=== PATIENT | male | born 1965 | race African-American/Black ===

== ENCOUNTER 2022-01-22 08:10 | Outpatient (CLI) | payer OTHER, SELFPAY ==
--- NOTE | 2022-02-17 08:31 | WPDSLEEPSTUD ---
Sleep Study Date of Study: 01/22/22 Ordering Provider: Donna Tuttle MD Interpreting Physician: Cindy Tay MD Sleep Study Type: Polysomnogram Height: 1.78 m Weight: 95.254 kg Body Mass Index: 30.1 Neck Circumference (inches): 16 Sullivan: 17 Reason for Sleep Study Hypersomnolence Sleep History Brodie Galvan is a a 56 year old man with complaints of snoring and excessive daytime sleepiness. He frequently wakes up during the night and he is tired during the day. This started about 7 years ago. He occasionally awakens from sleep feeling short of breath. He occasionally awakens at night with heartburn, belching or coughing. He occasionally snores, rarely loudly enough that others complain about it. He occasionally has trouble sleeping with a cold. He occasionally wakes up gasping for breath at night. He ra has breathing problems at night observed by others. He rarely sweats excessively at night and rarely notices his heart pounding or beating irregularly at night. He occasionally falls asleep during the day occasionally involuntarily, rarely while driving. He does not have loss of muscle tone with strong emotion. He does not have daytime difficulties due to sleepiness, he is retired. He occasionally feels paralyzed on waking or falling asleep. He does not have vivid dreamlike scenes upon awakening or falling asleep. He does not feel afraid to go to sleep. He rarely has nightmares. He rarely remembers his dreams. He rarely feels sad, depressed or anxious. He does not have muscular tension. He rarely notices parts of his body jerking. He rarely kicks at night. He does not have crawling or aching feelings in his legs. He does not have any kind of leg pain at night. He denies morning jaw pain. He frequently grinds his teeth during sleep. He rarely is bothered by pain during the day and rarely awakened by pain at night. He frequently wakes up feeling stiff in the morning with sore or achy muscles as well as frequently waking with pain in the neck and spine. He has fatigue, sexual problems, and he takes antacids regularly. He reports a 10 lb weight gain in the last year. Normal bedtime is 11:00 p.m. taking 5 minutes to fall asleep, and typically waking between 5 and 7 times throughout the night to urinate. At times, he awakens for no apparent reason, and simply lies in bed trying to return to sleep. These awakenings last on average 10 minutes. He does not take naps in the afternoon or evening. On occasion he awakens feeling refreshed. He feels better in the morning compared to other times of day. Habits: Never smoked tobacco. No caffeine, alcohol or recreational drugs. [facility] Past Medical History Medical History Erectile dysfunction GERD without esophagitis Recurrent genital herpes Surgical History Surgical History History of right inguinal hernia repair 2019 Family History Family History Other Diabetes mellitus Family history of malignant neoplasm Malignant neoplasm of prostate Social History Social History Second hand tobacco smoke exposure: No Alcohol intake: current Drinks per week: 4 Substance use: never Substance use type: does not use Gender identity (if verbalized by the patient): Male Spiritual care concerns: Yes Agree to blood products: Yes Medications Home Medications Medication Instructions Recorded Confirmed Type valacyclovir 500 mg tablet 500 mg PO DAILY #90 tabs 11/03/21 02/09/22 Rx omeprazole 20 mg capsule,delayed 20 mg PO DAILY #90 caps 12/29/21 02/09/22 Rx release sildenafil 100 mg tablet 100 mg PO DAILY PRN sexual 01/26/22 Rx activity #30 tabs Sleep Procedure This test was performed using the [employer]
[2022-02-17 08:54] VITALS: BMI 30.1
== END 2022-01-23 06:01 | disposition home or self-care (01) ==
LOC: ANHCSM 08:11
PROVIDERS: PCP Family Medicine; Visit Provider Family Medicine
DX: R06.83 Snoring (principal); G47.10 Hypersomnia, unspecified; Z68.30 Body mass index [BMI] 30.0-30.9, adult
CPT/HCPCS: 95810

== ENCOUNTER 2022-05-01 11:34 | Outpatient (CLI) | payer OTHER, SELFPAY ==
[2022-05-02 07:16] LABS: Rapid Plasma Reagin Non-Reactive (NonReactive)
[2022-05-05 15:21] LABS: Herpes Simplex Type 1 DNA PCR NOT DETECTED; Herpes Simplex Type 2 DNA PCR NOT DETECTED
[2022-05-06 03:11] LABS: HIV 1 RNA PCR NOT DETECTED (NOT DETECTED); HIV 1 RNA PCR NOT DETECTED copies/mL (NOT DETECTED)
== END 2022-05-01 11:35 | disposition home or self-care (01) ==
LOC: ANHGOSHLAB 11:36
PROVIDERS: PCP Family Medicine; Visit Provider Nurse Practitioner Family
DX: Z20.2 Contact with and (suspected) exposure to infections with a predominantly sexual mode of transmission (principal)
CPT/HCPCS: 36415; 86592; 87491; 87529; 87536; 87591

== ENCOUNTER → 2023-04-06 07:53 | Outpatient (CLI) | payer OTHER, SELFPAY ==
--- NOTE | ~2023-04-06 | XR_ITS ---
EXAMINATION: XR lumbar spine 2-3V DATE: 04/06/2023 08:11 INDICATION: Low back pain TECHNIQUE: Anteroposterior and lateral views of the lumbar spine, and cone-down lateral view of the l umbosacral junction were obtained. COMPARISON: None. FINDINGS: Bone alignment is normal. There is no fracture. The vertebral body heights are normal. Ther e is mild loss of intervertebral disc space height at L4-5. There is mild facet joint osteoarthritis of the lower lumbar spine. IMPRESSION: 1. Mild lumbar spondylosis without acute findings. Reviewed, dictated and finalized at location A.
== END ==
PROVIDERS: PCP Family Medicine; Visit Provider Nurse Practitioner Family
DX: M54.50 Low back pain, unspecified (principal); M43.06 Spondylolysis, lumbar region
CPT/HCPCS: 72100

== ENCOUNTER 2023-05-04 09:45 | Outpatient (RCR) | payer OTHER, SELFPAY ==
--- NOTE | 2023-04-14 13:12 | OPREHPOC ---
Outpatient Therapy Plan of Care This is a Multidisciplinary Plan of Care that may contain components documented by all disciplines (PT, OT, and ST.) PT Problem 1 PT Problem #1 Knowledge Deficit PT Goal 1 Goal Pt to be IND with issued HEP Target Visit 4 PT Problem 2 PT Problem #2 Pain PT Goal 1 Goal Pt to report back pain no greater than 3/10 in the last week Target Visit 8 PT Goal 2 Goal Pt to report 75% improvement in overall symptoms Target Visit 8 PT Problem 3 PT Problem #3 Impaired Functional Mobil PT Goal 1 Goal Pt to demonstrate a functional lift and carry with 30lb Target Visit 8 PT Goal 2 Goal Pt to demonstrate a functional squat without deviations Target Visit 8 PT Problem 4 PT Problem #4 Impaired Range of Motion PT Goal 1 Goal Pt to demonstrate equal lumbar ROM Target Visit 8
--- NOTE | 2023-04-14 13:12 | PTOPEVAL1 ---
Assessment and note entered by Angelia Murray, PT, DPT Evaluation Information Assessment Status Evaluation Diagnosis low back pain Onset 1-2 months Subjective Information Pt reports lower back pain, he states it is worse with bending or lifting. He states pain medication seems to help. He states he has been having this pain for 1-2 months without a MILLI. He likes to exercise. He remodels homes for work. He states he gets a catching pain when trying to bend over. He states the transition between sitting and standing gets his attention. Reported Pain Level Pain Score 2: Self Report Assessment PT Clinical Summary Brodie presents to therapy today for his initial evaluation with a diagnosis of low back pain. Today he demonstrates tenderness to palpation and decreased mobility of his lumbar paraspinals R>L. He demonstrates good LE ROM and strength. He stands with increased lumbar lordosis with sway back posture and an anterior weight shift. He demonstrates poor lifting mechanics. Skilled physical therapy services are indicated to improve soft tissue restrictions, to improve body mechanics, and to return to PLOF. Plan of Care Interventions Electrical Stimulation,Gait Training,Hot Pack/Cold Pack,Manual Therapy,Neuro Re-education,Patient/ Caregiver Educati,Therapeutic Activities, Therapeutic Exercise PT Services Indicated Yes Treatment Frequency and 1x/wk for 4 visits Duration These treatments will address the objective and functional deficits as defined above. The patient will be advanced safely and appropriately in order for the patient to progress towards his/her prior level of function. Additional exercises will be introduced and as well as a comprehensive home exercise program upon discharge, if needed, ?to ensure carryover of functional gains achieved in the clinic. This treatment plan has been reviewed and agreement upon by the patient.
--- NOTE | 2023-04-29 11:58 | PCPTNOTE ---
Patient no showed this date. Left a voicemail to call back to reschedule.
--- NOTE | 2023-05-12 10:16 | PCPTNOTE ---
Patient called & cancelled scheduled appointment this date due to being out of town for work. This was his last scheduled appointment.
--- NOTE | 2023-05-12 10:29 | PTOPDC ---
Assessment and note entered by Angelia Murray, PT, DPT Evaluation Information Assessment Status Discharge - Pt Not Present Diagnosis low back pain Onset 1-2 months Subjective Information Pt called to cancel his appointment today d/t being out of town. Called and followed up with patient as this was his last scheduled visit. Pt states he is doing well and no longer needs to continue therapy. He will be discharged at this time. Assessment PT Clinical Summary Brodie completed 3 visits of skilled therapy from 04/14/23 to 05/04/23. Plan of Care PT Services Indicated No
== END 2023-05-12 14:49 | disposition home or self-care (01) ==
LOC: ANHGOSHPT 09:45
PROVIDERS: PCP Family Medicine; Visit Provider Nurse Practitioner Family
DX: M54.50 Low back pain, unspecified (principal); G89.29 Other chronic pain
CPT/HCPCS: 97110; 97112; 97161; 97530; 99199

== ENCOUNTER 2023-10-07 09:46 | Emergency (ER) | payer OTHER, SELFPAY ==
[2023-10-07 10:00] VITALS: BP 142/101; PULSE 87; RESP 16; TEMP 37; O2SAT 100
--- NOTE | 2023-10-07 10:08 | ED.URI ---
HPI - URI/Sore Throat General Chief Complaint: Upper Respiratory Infection Stated Complaint: Fever/Cough/Congestion Source: patient and RN notes reviewed Mode of arrival: ambulatory Limitations: no limitations History of Present Illness HPI Narrative: 58 y/o male presented for c/o nasal congestion and cough x2 weeks. Started with fever, fatigue, wheeze at night, and body aches yesterday. Taking ibuprofen. Denies sob, n/v/d. MD elicited complaint: cough Related Data Allergies Allergy/AdvReac Type Severity Reaction Status Date / Time No Known Allergies Allergy Verified 04/06/23 07:38 Review of Systems Review of Systems: CONSTITUTIONAL: Endorses malaise, chills, sweats, fever EYES: Denies visual changes, redness, or discharge ENT: Reports rhinorrhea, congestion, sinus pain, denies otalgia, sore throat CARDIOVASCULAR: Denies chest pain, palpitations, edema RESPIRATORY: Reports cough, post nasal drainage. Denies dyspnea GASTROINTESTINAL: Denies abdominal pain, nausea, vomiting, diarrhea SKIN: Denies rash or itching MUSCULOSKELETAL: Endorses myalgia PMFSH Past Medical History Medical History Erectile dysfunction GERD without esophagitis Recurrent genital herpes Vitamin D deficiency Surgical History Surgical History History of right inguinal hernia repair 2019 Family History Family History Mother , age 81 Diabetes mellitus Cancer Other Family history of malignant neoplasm Malignant neoplasm of prostate Social History Social History Smoking status: Never smoker Second hand tobacco smoke exposure: No Alcohol intake: current Drinks per week: 4 Substance use: never Substance use type: does not use Lack of Transportation: No Lack of Food: Never True Current Housing: I Have Housing Concerned About Future Housing: No Difficulty Paying Gas/Electric Bills: No Difficulty Paying for Meds: No Currently Unemployed: No Education: Bachelor's Degree Difficulty w/ Childcare or Family Care: No Living arrangements: alone Occupation/Education: retired Additional occupation/education comments: Teacher Gender identity (if verbalized by the patient): Male Spiritual care concerns: No Agree to blood products: Yes Exam Narrative: GENERAL: mildly Ill-appearing, nontoxic no acute distress. EYES: PERRLA, conjunctivae clear ENT: Mucous membranes moist. TM pearly portillo with dull light reflex bilaterally; no tragal tenderness. Oropharynx not erythematous without lesions or exudate, no drooling, no hoarseness, no trismus, uvula midline. No tripod positioning, muffled voice, soft palate or pharyngeal wall bulging NECK: Supple. No lymphadenopathy CHEST: Clear to auscultation, breath sounds equal. No wheezing, rhonchi, rales, or stridor. No respiratory distress, speaks in full sentences. HEART: Regular rate and rhythm. No murmur heard. SKIN: Warm, dry, no rash. NEURO: Alert and oriented x3. PSYCH: Normal mood and affect Course Course Emergency Course: Patient is aware of diagnosis, understands and agrees to treatment plan. Anticipatory guidance given. Patient agrees to follow-up as directed and is aware of reasons to seek care at the emergency department. Portions of this record may have been created with voice recognition software Level of Care: Express Care Visit Vital Signs Vital signs: Vital Signs Temperature 98.6 F 10/07/23 10:00 Pulse Rate 87 10/07/23 10:00 Respiratory Rate 16 10/07/23 10:00 Blood Pressure 142/101 H 10/07/23 10:00 Pulse Oximetry 100 10/07/23 10:00 Temperature 98.6 F 10/07/23 10:00 Pulse Rate 87 10/07/23 10:00 Respiratory Rate 16 10/07/23 10:00 Blood Pressure 142/101 H 10/07/23 10:00 Pul
== END 2023-10-07 10:29 | disposition home or self-care (01) ==
PROVIDERS: Emergency Provider Nurse Practitioner Family; PCP Family Medicine
DX: J06.9 Acute upper respiratory infection, unspecified (principal); Z20.822 Contact with and (suspected) exposure to COVID-19
CPT/HCPCS: 87426; 87804; 99213; G0463

== ENCOUNTER 2023-10-28 09:08 | Outpatient (CLI) | payer OTHER, SELFPAY ==
[2023-10-28 12:50] LABS: Basophils Percent Auto 0.7 % (0.2-1.2); Eosinophils Absolute Auto 0.1 K/mm3 (0-0.3); Eosinophils Percent Auto 2.1 % (0-4.4); Hematocrit 44.6 % (42.0-52.0); Hemoglobin 14.3 g/dL (14.0-18.0); Immature Granulocyte Absolute 0.01 K/mm3 (0.00-0.031); Immature Granulocyte Percent A 0.2 % (0-0.5); Lymphocytes Absolute Auto 1.53 K/mm3 (0.9-3.2); Lymphocytes Percent Auto 35.8 % (18.3-44.2); Mean Corpuscular HGB Conc 32.1 g/dl (32-36); Mean Corpuscular Volume 96.5 fl (80-100); Mean Platelet Volume 10.4 fl (7.4-10.4); Monocytes Absolute Auto 0.4 K/mm3 (0.1-0.6); Monocytes Percent Auto 8.2 % (2.6-8.5); Neutrophils Absolute Auto 2.3 K/mm3 (1.3-6.7); Platelet Count Result 172 k/mm3 (150-375); Red Blood Count 4.62 M/mm3 (4.6-6.20); Red Cell Distribution Width 13.1 % (11.5-14.5); White Blood Count 4.3 K/mm3 (4.5-10.0)
[2023-10-28 12:52] LABS: Alanine Aminotransferase 24 U/L (6-50); Albumin Level 4.4 g/dL (3.5-5.1); Alkaline Phosphatase 79 U/L (38-126); Anion Gap 10 mmol/L (8-16); Aspartate Amino Transferase 39 U/L (17-59); Bilirubin,Total 1.2 mg/dL (0.2-1.3); Blood Urea Nitrogen 21 mg/dL (9-20); Carbon Dioxide 25 mmol/L (22-30); Chloride 106 mmol/L (98-107); Cholesterol 167 mg/dL (0-200); Estimated Glomerular Filt Rate > 60; Glucose 92 mg/dL (65-110); HDL Direct 47 mg/dL; Potassium 3.5 mmol/L (3.4-5.0); Sodium 141 mmol/L (137-145); Triglycerides 116 mg/dL (<150)
[2023-10-28 13:04] LABS: LDL Cholesterol Direct 102 mg/dL
[2023-10-28 13:19] LABS: Vitamin D 25 Hydroxy 50.1 ng/mL
[2023-10-28 13:23] LABS: Prostate Specific Antigen 1.9 ng/mL (< OR = 4.0); Thyroid Stimulating Hormone 0.614 uIU/mL (0.465-4.680)
[2023-10-28 13:31] LABS: HIV 1/2 Ab P24 Ag Result Negative (Negative)
[2023-10-28 13:33] LABS: Hemoglobin A1C 5.6 % (<5.7)
[2023-10-28 13:57] LABS: Trichomonas Vag PCR NOT DETECTED (NOT DETECTE)
[2023-10-28 14:22] LABS: Chlamydia trachomatis NOT DETECTED (NOT DETECTE); Neisseria gonorrhoeae PCR NOT DETECTED (NOT DETECTE)
[2023-10-28 23:09] LABS: Rapid Plasma Reagin Non-Reactive (NonReactive)
[2023-11-01 18:06] LABS: Testosterone Free 59.5 pg/mL (46.0-224.0)
== END 2023-10-28 09:09 | disposition home or self-care (01) ==
LOC: ANHGOSHLAB 09:10
PROVIDERS: PCP Family Medicine; Visit Provider Nurse Practitioner Family
DX: Z00.00 Encounter for general adult medical examination without abnormal findings (principal); I10 Essential (primary) hypertension; Z11.3 Encounter for screening for infections with a predominantly sexual mode of transmission; E55.9 Vitamin D deficiency, unspecified; R73.03 Prediabetes; Z13.29 Encounter for screening for other suspected endocrine disorder; E78.5 Hyperlipidemia, unspecified; Z12.5 Encounter for screening for malignant neoplasm of prostate; E53.8 Deficiency of other specified B group vitamins
CPT/HCPCS: 36415; 80053; 80061; 82306; 82607; 83036; 84153; 84402; 84443; 85025; 86592; 86703; 87491; 87591; 87661; G0103; G0432

== ENCOUNTER 2024-03-31 17:56 | Emergency (ER) | payer OTHER, SELFPAY ==
[2024-03-31 18:04] VITALS: BP 118/91; PULSE 64; RESP 16; TEMP 36.2; O2SAT 100
--- NOTE | 2024-03-31 18:29 | ED.NAVMDI ---
HPI - Nausea/Vomiting/Diarrhea General Chief complaint: Nausea/Vomiting/Diarrhea Stated complaint: DIARRHEA Time Seen by Provider: 03/31/24 18:09 Source: patient, family () and RN notes reviewed Mode of arrival: ambulatory Limitations: no limitations History of Present Illness HPI Narrative: Patient presents today complaining of 4 day history of diarrhea. Denies abdominal pain, fever, blood or mucus in the stool. He has taken some Imodium a few days ago with some relief of symptoms. He is currently having 1 stool a day. He has been drinking fluids and eating crackers and bananas. Related Data Allergies Allergy/AdvReac Type Severity Reaction Status Date / Time No Known Allergies Allergy Verified 10/28/23 08:24 Review of Systems Review of Systems: CONSTITUTIONAL: Denies body aches, fever, chills, or sweats. EYES: Denies visual changes, redness, or discharge. ENT: Denies rhinorrhea, congestion, sore throat, or otalgia. CARDIOVASCULAR: Denies chest pain, palpitations, or edema. RESPIRATORY: Denies cough or dyspnea. GASTROINTESTINAL: Denies abdominal pain, vomiting.+ diarrhea, nausea GENITOURINARY: Denies dysuria or hematuria. SKIN: Denies rash, itching, or wounds. MUSCULOSKELETAL: Denies back pain, joint pain, or myalgia. NEUROLOGIC: Denies headache, numbness, tingling, or weakness. PSYCH: Denies depression or anxiety. [facility] Past Medical History Medical History Erectile dysfunction GERD without esophagitis HTN (hypertension) with goal to be determined Night sweats Recurrent genital herpes Vitamin D deficiency Surgical History Surgical History History of right inguinal hernia repair 2019 Family History Family History Mother , age 81 Diabetes mellitus Cancer Other Family history of malignant neoplasm Malignant neoplasm of prostate Social History Social History Smoking status: Never smoker Second hand tobacco smoke exposure: No Alcohol intake: current Drinks per week: 4 Substance use: never Substance use type: does not use Lack of Transportation: No Lack of Food: Never True Current Housing: I Have Housing Concerned About Future Housing: No Difficulty Paying Gas/Electric Bills: No Difficulty Paying for Meds: No Currently Unemployed: No Education: Bachelor's Degree Difficulty w/ Childcare or Family Care: No Living arrangements: alone Occupation/Education: retired Additional occupation/education comments: Teacher Gender identity (if verbalized by the patient): Male Spiritual care concerns: No Agree to blood products: Yes Comments At time of signature, I have reviewed and agree with nursing past medical, surgical, social and family history unless otherwise noted. Please see nursing chart for further information. There is no relevant family history pertinent to the presenting complaint Exam Narrative: GENERAL: Well-appearing, well-nourished, and in no acute distress. HEAD: Normocephalic, atraumatic. EYES: EOMI. No redness or drainage. Conjunctivae normal. ENT: Mucous membranes pink and moist. NECK: Normal AROM. CHEST: No respiratory distress. Clear to auscultation. HEART: Regular rate and rhythm. No murmur appreciated. ABDOMEN: Soft, nontender, nondistended, normal active bowel sounds. EXTREMITIES: Normal range of motion. No edema. SKIN: Warm, dry, no rash. Capillary refill normal. Normal skin turgor. NEURO: No focal deficits. Alert and oriented x3. Gait steady. PSYCH: Normal affect. No signs of depression or anxiety. Course Course Level of Care: Express Care Visit Vital Signs Vital signs: Vital Signs Temperature 97.2 F L 03/31/24 18:04 Pulse Rate 64 03/31/24 18:04 Res
== END 2024-03-31 18:36 | disposition home or self-care (01) ==
PROVIDERS: Emergency Provider Nurse Practitioner; PCP Family Medicine
DX: R19.7 Diarrhea, unspecified (principal); K21.9 Gastro-esophageal reflux disease without esophagitis; I10 Essential (primary) hypertension
CPT/HCPCS: 99211; G0463

== ENCOUNTER 2024-06-07 17:30 | Emergency (ER) | payer OTHER, SELFPAY ==
--- NOTE | ~2024-06-07 | XR_ITS ---
EXAMINATION: XR foot LT min 3V DATE: 06/07/2024 18:11 INDICATION: Puncture wound at the fourth metatarsal TECHNIQUE: Dorsoplantar, two oblique and lateral views of the left foot were obtained. COMPARISON: None. FINDINGS: Alignment is normal. No fracture. Mild osteoarthritis at the first metatarsophalangeal and a few tars ometatarsal and interphalangeal joints. Small region of nonaggressive appearing periosteal reaction a long the lateral neck of the fourth metatarsal potentially related to chronic stress reaction. Large Achilles calcaneal spur and small plantar calcaneal spur. Soft tissues are unremarkable. No radiopaqu e foreign bodies. IMPRESSION: 1. No acute osseous abnormality or radiopaque foreign bodies. Reviewed, dictated and finalized at location A.
[2024-06-07 17:40] VITALS: BP 131/95; PULSE 84; RESP 16; TEMP 36.7; O2SAT 100
--- NOTE | 2024-06-07 17:57 | ED.WOUNDLAC ---
HPI - Wound/Laceration General Chief Complaint: Wound/Laceration Stated Complaint: LT Foot injury Time Seen by Provider: 06/07/24 17:58 Source: patient and RN notes reviewed Mode of arrival: ambulatory Limitations: no limitations History of Present Illness HPI narrative: 58-year-old male presents with concern of for puncture wound to his left foot. Reports while wearing tennis shoes today he stepped on a nail. He reports it became more painful when he took off his tennis shoe later in the day. Reports reports swelling and tenderness Related Data Allergies Allergy/AdvReac Type Severity Reaction Status Date / Time No Known Allergies Allergy Verified 06/07/24 17:42 Review of Systems Review of Systems: CONSTITUTIONAL: Denies malaise, chills, sweats, or fever. SKIN: Reports puncture wound to the left foot MUSCULOSKELETAL: Denies muscle skeletal pain NEUROLOGIC: Denies numbness, weakness All systems reviewed & are unremarkable except as noted in HPI and below PMFSH Past Medical History Medical History Erectile dysfunction GERD without esophagitis HTN (hypertension) with goal to be determined Night sweats Recurrent genital herpes Vitamin D deficiency Surgical History Surgical History History of right inguinal hernia repair 2019 Family History Family History Mother , age 81 Diabetes mellitus Cancer Other Family history of malignant neoplasm Malignant neoplasm of prostate Social History Social History Smoking status: Never smoker Second hand tobacco smoke exposure: No Alcohol intake: current Drinks per week: 4 Substance use: never Substance use type: does not use Lack of Transportation: No Lack of Food: Never True Current Housing: I Have Housing Concerned About Future Housing: No Difficulty Paying Gas/Electric Bills: No Difficulty Paying for Meds: No Currently Unemployed: No Education: Bachelor's Degree Difficulty w/ Childcare or Family Care: No Living arrangements: alone Occupation/Education: retired Additional occupation/education comments: Teacher Gender identity (if verbalized by the patient): Male Spiritual care concerns: No Agree to blood products: Yes Comments At time of signature, agree with nursing past medical, surgical, social and family history. There is no relevant family history pertinent to the presenting complaint Exam Narrative: GENERAL: Well-appearing, well-nourished, and in no acute distress. HEAD: Normocephalic, atraumatic. EYES: PERRLA, conjunctivae clear NECK: Supple. CHEST: Speaks in full sentences. No respiratory distress. HEART: Regular rate and rhythm. Normal and equal peripheral pulses. EXTREMITIES: Left foot digits have grossly normal strength and sensation, grossly normal range of motion. General edema with mild pedal erythema, ecchymosis. 5/5 strength with digit flexion and extension. Normal sensation with sensitivity to light touch and pain. Pedal and dorsal tenderness near the 4th 5th metatarsals. No skin tenting, no devitalized tissue or atrophy, no trophic changes, no obvious deformity, alignment normal, nearby joints and structures intact. Distal pulses palpable and equal bilaterally, skin warm, dry, pink. Capillary refill less than 3 seconds. SKIN: Warm, dry, no rash. Puncture wound noted to the pedal aspect left foot near the 4th metatarsal NEURO: Alert and oriented x3. PSYCH: Normal mood and affect Course Course Emergency Course: Patient is aware of diagnosis, understands and agrees to treatment plan. Anticipatory guidance given. Patient agrees to follow-up as directed and is aware of reasons to seek care at the emergency department. Portions of this eddie
== END 2024-06-07 18:42 | disposition home or self-care (01) ==
PROVIDERS: Emergency Provider Nurse Practitioner; PCP Family Medicine
DX: S91.332A Puncture wound without foreign body, left foot, initial encounter (principal); I10 Essential (primary) hypertension; W45.0XXA Nail entering through skin, initial encounter
CPT/HCPCS: 73630; 99213; G0463

== ENCOUNTER 2024-10-31 09:37 | Outpatient (CLI) | payer OTHER, SELFPAY ==
--- OUTSIDE RECORDS SUMMARY | 2024-10-31 10:30 | XMS_ITS | Clinical Summary ---
Author Organization [facility] Address [address], [facility] [address] [place] [address] Phone Care Team Providers Care Gaming Floor Supervisor Name Role Phone Neto Davalos MD Primary Care Provider [phone] Jose Denise DO Unavailable [phone] Allergies No known active allergies Medications polyethylene glycol (MIRALAX) Powder Use entire 255g bottle with 64oz of clear liquid as directed for colonoscopy prep. 255 g 0 7 Active valACYclovir (VALTREX) 500 MG Tablet Take 500 mg by mouth daily. Active Tamsulosin HCl (FLOMAX PO) Take by mouth daily. Active diclofenac (VOLTAREN) 75 MG Tablet Delayed Response Take 75 mg by mouth daily. Active omeprazole (PRILOSEC) 20 MG CAPSULE DELAYED RELEASE Take 20 mg by mouth daily. 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 Gender Identity Not on file Sexual Orientation Not on file Plan of Treatment Health Maintenance Due Date Last Done Comments Hepatitis C Virus (HCV) Screening 1966 TdaP Immunization 1966 Hepatitis B Immunization (1 of 3 - 19+ 3-dose series) 1985 Cologuard 2016 Immunochemical Fecal Occult Blood 2016 Pneumococcal Immunization (5 0+ years) (1 of 1 - PCV) 2016 Zoster Immunization (1 of 2) 2016 PSA Discussion 2021 Colonoscopy 01/07/2022 01/07/2017 Colorectal Cancer Screening 01/07/2022 Influenza Immunization (#1) 2024 SARS-COV-2 Immunization (1 - 2023-25 season) 2024 Respiratory Syncytial Virus (RSV) Immunization (Adult) (1 - 1-dose 75+ series) 2041 01/07/2017 Meningococcal Immunization (ACWY) Aged Out No longer eligible based on patient's age to complete this topic Pneumococcal Immunization Combined Aged Out No longer eligible based on patient's age to complete this topic Rotavirus Immunization Aged Out No lo nger eligible based on patient's age to complete this topic Procedures Procedure Name Priority Date/Time Associated Diagnosis Comments COLONOSCOPY Routine 01/07/2017 from Last 3 Months or Most Recently Relevant to Health Maintenance Results * COLONOSCOPY (01/07/2017) Neto Davalos MD PROCEDURE/MINOR SURGICAL ORDERA BLES Final Result from Last 3 Months or Most Recently Relevant to Health Maintenance Care Teams Gaming Floor Supervisor Relationship Specialty Start Date End Date Neto Davalos MD [address] [place] [id number] PCP - General Family Medicine 09/02/16 Jose Denise DO [address] [place] [id number] Consulting Physician Gastroenterology 01/07/17
--- OUTSIDE RECORDS SUMMARY | 2024-10-31 10:30 | XMS_ITS | Clinical Summary ---
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
--- OUTSIDE RECORDS SUMMARY | 2024-10-31 10:30 | XMS_ITS | Clinical Summary ---
Author Organization [facility] Address [address] [place] [address] Care Team Providers Care Payment Processor Name Role Phone Unavailable Primary Care Provider Unavailabl e Social History Tobacco Use Types Packs/Day Years Used Date Smoking Tobacco: Never Assessed Sex and Gender Information Value Date Recorded Sex Assigned at Not on file Legal Sex Male 5:30 PM CDT Gender Identity Not on file Sexual Orientation Not on file Plan of Treatment Health Maintenance Due Date Last Done Comments Colorectal Cancer Screening Colonoscopy (10 Years) 1966 Annual Physical 1969 Hepatitis C 1984 DTaP, Tdap and Td Vaccines ( 1 - Tdap) 1985 Hepatitis B Vaccines (1 of 3 - 19+ 3-dose series) 1985 Zoster Vaccines (1 of 2) 2016 COVID-19 Vaccine (2023-2 5 season) 2024 Influenza Adult (#1) 2024 Meningococcal B Vaccine Aged Out No l onger eligible based on patient's age to complete this topic Meningococcal Vaccine Aged Out No christopher arash eligible based on patient's age to complete this topic Pneumococcal Vaccine: Pediat rics (0 to 5 Years) and At-Risk Patients (6 to 64 Years) Aged Out No longer eligible b ased on patient's age to complete this topic RSV Immunizations Under 20 Months Aged Out No longer eligible based on patient's age to complete this topic
--- OUTSIDE RECORDS SUMMARY | 2024-10-31 10:30 | XMS_ITS | Clinical Summary ---
Author Organization [facility] Address [address] [place] [address] Care Team Providers Care Restaurant Associate Name Role Phone Neto Davalos MD Primary Care Provider [phone] Source Comments [facility],non-owned Affiliates and Associated Physician Practices is amultiple site organization consisting of ambulatory clinics and hospital sitesin [place], [place], [place] and [place]. This disclosure is being madepursuant to the Care Everywhere program and may not contain all information available regarding this patient. Last updated 18.[facility] [employer] Allergies No known active allergies Medications * Be aware that medications may not be up to date on this document. Alwaysverify current medications with the patient. Medication Sig Dispensed Refills Start Date End Date Status valACYclovir (VALTREX) 500 MG tablet 05/02/2018 Active omeprazole (PRILOSEC) 20 MG capsule 05/02/2018 Active sildenafil (VIAGRA) 100 MG tablet 05/02/2018 Active Active Problems No known active problems Family History Medical History Relation Name Comments Cancer - Skin, Melanoma Neg Hx Cancer - Skin, Non Melanoma Neg Hx Social History Tobacco Use Types Packs/Day Years Used Date Smoking Tobacco: Never Smokeless Tobacco: Never Alcohol Use Standard Drinks/Week Comments Yes 0 (1 standard drink = 0.6 oz pur e alcohol) Sex and Gender Information Value Date Recorded Sex Assigned at Not on file Gender Identity Not on file Sexual Orientation Not on file Plan of Treatment Health Maintenance Due Date Last Done Comments COLOGUARD (AGES 45-75) - COL ON CA SCREENING 1966 COLON MONITORING 1966 COLONOSCOPY - COLON CA SCREENING 1966 CT COLONOGRAPHY - COLON CA SCREENING 1966 Colorectal Cancer Screening 1966 FIT - COLON CA SCREENING 1966 FLEX SIG - COLON CA SCREENING 1966 LIPID TESTING 1966 HIV SCREENING 1981 HEPATITIS C SCREENING 08/08/1984 DTAP/TDAP/TD VACCINES (1 - Tdap) 1985 HEPATITIS B VACCINE (1 of 3 - 19+ 3-dose series) 1985 PNEUMOCOCCAL VACCINE 50+ (1 of 1 - PCV) 2016 ZOSTER VACCINE (1 of 2) 2016 COVID-19 VACCINE ( - 2023-2 5 season) 2024 INFLUENZA VACCINE (#1) 2024 DEPRESSION SCREENING 08/16/2024 HIB VACCINE Aged Out No longer eligi ble based on patient's age to complete this topic HPV VACCINE Aged Out No longer eligi ble based on patient's age to complete this topic MENINGOCOCCAL (Group B) VACC INE SHARED DECISION-MAKING Aged Out No longer eligibl e based on patient's age to complete this topic MENINGOCOCCAL GROUPS A/C/Y/W VACCINE Aged Out No longer eligible b ased on patient's age to complete this topic PNEUMOCOCCAL VACCINE Aged Out No long er eligible based on patient's age to complete this topic Care Teams Restaurant Associate Relationship Specialty Start Date End Date Neto Davalos MD [address] [place] [address] PCP - General Family Medicine 04/16/17
--- OUTSIDE RECORDS SUMMARY | 2024-10-31 10:30 | XMS_ITS | Encounter Summary ---
Author Organization [facility] Address 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
[2024-10-31 13:28] LABS: Basophils Percent Auto 0.7 % (0.2-1.2); Eosinophils Absolute Auto 0.1 K/mm3 (0-0.3); Eosinophils Percent Auto 2.6 % (0-4.4); Hematocrit 47.3 % (42.0-52.0); Hemoglobin 15.6 g/dL (14.0-18.0); Immature Granulocyte Absolute 0.03 K/mm3 (0.00-0.031); Immature Granulocyte Percent A 0.7 % (0-0.5); Lymphocytes Absolute Auto 1.82 K/mm3 (0.9-3.2); Lymphocytes Percent Auto 39.8 % (18.3-44.2); Mean Corpuscular Hemoglobin 29.9 pg (26-34); Mean Corpuscular Volume 90.6 fl (80-100); Mean Platelet Volume 10.2 fl (7.4-10.4); Monocytes Absolute Auto 0.4 K/mm3 (0.1-0.6); Monocytes Percent Auto 8.1 % (2.6-8.5); Neutrophils Absolute Auto 2.2 K/mm3 (1.3-6.7); Neutrophils Percent Auto 48.1 % (45.5-73.1); Platelet Count Result 222 k/mm3 (150-375); Red Blood Count 5.22 M/mm3 (4.6-6.20); Red Cell Distribution Width 11.8 % (11.5-14.5); White Blood Count 4.6 K/mm3 (4.5-10.0)
[2024-10-31 13:32] LABS: Alanine Aminotransferase 55 U/L (6-50); Albumin Level 4.5 g/dL (3.5-5.1); Alkaline Phosphatase 78 U/L (38-126); Anion Gap 9 mmol/L (4-12); Aspartate Amino Transferase 112 U/L (17-59); Bilirubin,Total 0.7 mg/dL (0.2-1.3); Blood Urea Nitrogen 21 mg/dL (9-20); Calcium 9.4 mg/dL (8.4-10.2); Carbon Dioxide 27 mmol/L (22-30); Chloride 108 mmol/L (98-107); Cholesterol 146 mg/dL (0-200); Estimated Glomerular Filt Rate 59; Glucose 103 mg/dL (65-110); HDL Direct 41 mg/dL; Potassium 4.3 mmol/L (3.4-5.0); Sodium 144 mmol/L (137-145); Triglycerides 106 mg/dL (<150)
[2024-10-31 13:43] LABS: LDL Cholesterol Direct 76 mg/dL
[2024-10-31 14:02] LABS: Prostate Specific Antigen 1.7 ng/mL (< OR = 4.0)
[2024-10-31 14:10] LABS: Vitamin D 25 Hydroxy 37.4 ng/mL
[2024-10-31 14:24] LABS: Thyroid Stimulating Hormone Reflex 0.444 uIU/mL (0.465-4.68)
[2024-10-31 14:48] LABS: HIV 1/2 Ab P24 Ag Result Negative (Negative)
[2024-10-31 15:48] LABS: Chlamydia trachomatis NOT DETECTED (NOT DETECTE); Neisseria gonorrhoeae PCR NOT DETECTED (NOT DETECTE)
[2024-10-31 17:03] LABS: Trichomonas Vag PCR NOT DETECTED (NOT DETECTE)
[2024-11-01 05:11] LABS: Free T4 Free Thyroxine Reflex 1.01 ng/dL (0.78-2.19)
[2024-11-01 05:56] LABS: Total Triiodothyronine (T3) 1.63 NG/ML (0.97-1.69)
== END 2024-10-31 09:38 | disposition home or self-care (01) ==
PROVIDERS: PCP Family Medicine; Visit Provider Nurse Practitioner Family
DX: E78.5 Hyperlipidemia, unspecified (principal); I10 Essential (primary) hypertension; E03.9 Hypothyroidism, unspecified; N52.9 Male erectile dysfunction, unspecified; E55.9 Vitamin D deficiency, unspecified; Z20.2 Contact with and (suspected) exposure to infections with a predominantly sexual mode of transmission; Z12.5 Encounter for screening for malignant neoplasm of prostate; Z11.3 Encounter for screening for infections with a predominantly sexual mode of transmission
CPT/HCPCS: 36415; 80053; 80061; 82306; 84153; 84403; 84439; 84443; 84480; 85025; 86703; 87210; 87491; 87529; 87591; 87661; G0103; G0432

== ENCOUNTER 2025-06-15 16:11 | Outpatient (CLI) | payer OTHER, SELFPAY ==
--- OUTSIDE RECORDS SUMMARY | 2025-06-15 16:14 | XMS_ITS | Clinical Summary ---
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 Gender Identity Not on file Sexual Orientation Not on file Plan of Treatment Health Maintenance Due Date Last Done Comments Hepatitis C Virus (HCV) Screening 1966 TdaP Immunization 1966 Hepatitis B Immunization (1 of 3 - 19+ 3-dose series) 1985 Cologuard 2011 Immunochemical Fecal Occult Blood 2011 Pneumococcal Immunization (5 0+ years) (1 of 1 - PCV) 2016 Zoster Immunization (1 of 2) 2016 Colonoscopy 01/07/2022 01/07/2017 Colorectal Cancer Screening 01/07/2022 Influenza Immunization (#1) 2025 SARS-COV-2 Immunization (1 - season) 2025 Respiratory Syncytial Virus (RSV) Immunization (Adult) (1 - 1-dose 75+ series) 2041 Human Papillomavirus (HPV) Immunization Aged Out No longer eligible b ased on patient's age to complete this topic Meningococcal Immunization (ACWY) Aged Out No longer eligible based on patient's age to complete this topic Rotavirus Immunization Aged Out No lo nger eligible based on patient's age to complete this topic Procedures Procedure Name Priority Date/Time Associated Diagnosis Comments COLONOSCOPY Routine 01/07/2017 from Last 3 Months or Most Recently Relevant to Health Maintenance Results * HM COLONOSCOPY (01/07/2017) Neto Davalos MD PROCEDURE/MINOR SURGICAL ORDERA BLES Final Result from Last 3 Months or Most Recently Relevant to Health Maintenance Care Teams Dry Cans Back Tender Relationship Specialty Start Date End Date Neto Davalos MD [address] [place] [id number] PCP - General Family Medicine 09/02/16 Jose Denise DO [address] [place] [id number] Consulting Physician Gastroenterology 01/07/17
--- OUTSIDE RECORDS SUMMARY | 2025-06-15 16:14 | XMS_ITS | Clinical Summary ---
Author Organization [facility] Address [facility] [place] [address] Care Team Providers Care Packager Or Packer And Weigher Name Role Phone Unavailable Primary Care Provider [...] of 3 - 19+ 3-dose series) 1985 Pneumococcal Vaccine: 50+ Ye ars (1 of 1 - PCV) 2016 Zoster Vaccines (1 of 2) 2016 COVID-19 Vaccine (2024-2 6 season) 2025 Influenza Adult (#1) 2025 Hepatitis A Vaccines Aged Out No long er eligible based on patient's age to complete this topic Meningococcal B Vaccine Aged Out No l onger eligible based on patient's age to complete this topic Meningococcal Vaccine Aged Out No christopher arash eligible based on patient's age to complete this topic RSV Immunizations Under 20 Months Aged Out No longer eligible based on patient's age to complete this topic
--- OUTSIDE RECORDS SUMMARY | 2025-06-15 16:14 | XMS_ITS | Encounter Summary ---
Author Organization [facility] Address 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
--- OUTSIDE RECORDS SUMMARY | 2025-06-15 16:14 | XMS_ITS | Clinical Summary ---
Author Organization [facility] [employer] Address [address] [place] [address] Care Team Providers Care Neon Glass Blower Name Role Phone Neto Davalos MD Primary Care Provider [phone] Source Comments [facility] [employer],non-owned Affiliates and Associated Physician Practices is amultiple site organization consisting of ambulatory clinics and hospital sitesin [place], [place], [place] and [place]. This disclosure is being madepursuant to the Care Everywhere program and may not contain all information available regarding this patient. Last updated 18.[facility] [employer] Allergies No known active allergies Medications * Be aware that medications may not be up to date on this document. Alwaysverify current medications with the patient. valACYclovir (VALTREX) 500 MG tablet 05/02/2018 Active [...] at Not on file Legal Sex Male 9:07 AM CDT Gender Identity Not on file Sexual [...] 2016 ZOSTER VACCINE (1 of 2) 2016 DEPRESSION SCREENING 08/16/2024 COVID-19 VACCINE (1 - 2023-2 5 season) 2025 INFLUENZA VACCINE (#1) 2025 HIB VACCINE Aged Out No longer eligi [...] on patient's age to complete this topic Insurance [facility] [place] [facility] [place] Care Teams Neon Glass Blower Relationship Specialty Start Date End Date Neto Davalos MD [address] [place] [address] PCP - General Family Medicine 04/16/17
--- OUTSIDE RECORDS SUMMARY | 2025-06-15 16:14 | XMS_ITS | Clinical Summary ---
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
[2025-06-15 18:38] LABS: Alanine Aminotransferase 29 U/L (6-50); Albumin Level 4.9 g/dL (3.5-5.1); Alkaline Phosphatase 87 U/L (38-126); Anion Gap 9 mmol/L (4-12); Aspartate Amino Transferase 46 U/L (17-59); Bilirubin,Total 1.6 mg/dL (0.2-1.3); Blood Urea Nitrogen 16 mg/dL (9-20); Calcium 9.5 mg/dL (8.4-10.2); Carbon Dioxide 28 mmol/L (22-30); Chloride 105 mmol/L (98-107); Estimated Glomerular Filt Rate 60; Glucose 106 mg/dL (65-110); Potassium 3.9 mmol/L (3.4-5.0); Sodium 142 mmol/L (137-145); Total Protein 8.0 g/dL (6.3-8.2)
[2025-06-15 18:47] LABS: Syphilis IgG/IgM Antibody Non-Reactive (Nonreactive)
[2025-06-15 18:49] LABS: Hepatitis B Surface Antigen Negative (Negative)
[2025-06-15 18:54] LABS: HAV RESULT Negative (Negative); Hepatitis B Core IgM Result Negative (Negative)
[2025-06-15 18:59] LABS: HIV 1/2 Ab P24 Ag Result Negative (Negative)
[2025-06-15 19:17] LABS: Trichomonas Vag PCR NOT DETECTED (NOT DETECTE)
== END 2025-06-15 16:12 | disposition home or self-care (01) ==
LOC: ANHGOSHLAB 16:12
PROVIDERS: PCP Family Medicine; Visit Provider Nurse Practitioner Family
DX: Z11.3 Encounter for screening for infections with a predominantly sexual mode of transmission (principal); Z20.6 Contact with and (suspected) exposure to human immunodeficiency virus [HIV]; R74.8 Abnormal levels of other serum enzymes; Z72.89 Other problems related to lifestyle
CPT/HCPCS: 36415; 80053; 80074; 86593; 86703; 87491; 87591; 87661; G0432